=== PATIENT | female | born 2000 | race Caucasian/White ===

== ENCOUNTER 2019-01-25 14:35 | Emergency (ER) | payer OTHER ==
[~2019-01-25] VITALS: Ht 170.2 cm; Wt 63.5 kg
[2019-01-25] MEDS ORDERED: TRAMADOL 50MG TABLET PO ONE (19:15)
[2019-01-25 19:37] LABS: CLARITY URINE CLOUDY (CLEAR); COLOR URINE DARK YELLOW (YELLOW); KETONES URINE 1+ (NEGATIVE); LEUKOCYTE ESTERASE URINE 1+ (NEGATIVE); NITRITE URINE NEGATIVE (NEGATIVE); OCCULT BLOOD URINE NEGATIVE (NEGATIVE); PH URINE 5.5 (4.5-8.0); PROTEIN URINE TRACE (NEGATIVE); SPECIFIC GRAVITY URINE 1.031 (1.005-1.030); UROBILINOGEN URINE 0.2 E.U./dL (0.2-1.0)
[2019-01-25 21:01] VITALS: BP 118/75
== END 2019-01-25 21:02 | disposition home or self-care (01) ==
LOC: ER 14:35
DX: R10.9 Unspecified abdominal pain (principal); Q64.9 Congenital malformation of urinary system, unspecified
CPT/HCPCS: 81003; 81025; 99283

== ENCOUNTER 2019-04-16 12:06 | Emergency (ER) | payer OTHER ==
[~2019-04-16] VITALS: Ht 170.2 cm; Wt 62.0 kg
[2019-04-16 12:33] VITALS: BP 109/56
== END 2019-04-16 13:56 | disposition left against medical advice (07) ==
LOC: ER 12:17
DX: R68.89 Other general symptoms and signs (principal); Z53.21 Procedure and treatment not carried out due to patient leaving prior to being seen by health care provider